=== PATIENT | male | born 1990 | race African-American/Black ===

== ENCOUNTER 2018-01-06 15:09 | Emergency (ER) | payer OTHER ==
[~2018-01-06] VITALS: Ht 165.1 cm; Wt 69.9 kg
[~2018-01-06 15:09] MED LIST: BACL-1 PO; CYCL10TA29 PO; HYDR-4309 PO; LOR5/325 PO
--- NOTE | 2018-01-06 15:17 | ER Report ---
History and Physical Time Seen By MD: 15:16 HPI/ROS CHIEF COMPLAINT: Toe pain HISTORY OF PRESENT ILLNESS: This is a 27-year-old male who presents to the emergency department for left toe pain right foot pain and mid back pain. Patient states about one week ago he developed some pain in his 2nd toe on his left foot, and then developed some pain to the dorsum of the right foot and then little bit of swelling to his right knee. No pain to the knee. Patient also states that he's had some mid thoracic back discomfort. Patient denies any injuries. [place] lot of traveling and walking around and since he's been back to [place] he's been walking quite a bit as well. Patient states he's been taking ibuprofen to help with some discomfort and inflammation. He said the pain is intermittent and seems to increase when he is ambulatory little so when he is sedentary. Patient denies fevers, aches, chills, nausea, vomiting, diarrhea, rashes, headaches, chest pain, shortness of breath or visual changes. REVIEW OF SYSTEMS: Constitutional: No fever, no chills. Eyes: No discharge. ENT: No sore throat. Cardiovascular: No chest pain, no palpitations. Respiratory: No cough, no shortness of breath. Gastrointestinal: No abdominal pain, no vomiting. Genitourinary: No hematuria. Musculoskeletal: As above. Skin: No rashes. Neurological: No headache. Allergies: Coded Allergies: No Known Drug Allergies (Unverified , 01/06/18) Home Meds Active Scripts Indomethacin (INDOMETHACIN) 25 Mg Capsule, 25 MG PO TID, #1 CAPSULE Prov:JOANN GALDAMEZP- 01/06/18 Indomethacin (INDOMETHACIN) 50 Mg Capsule, 50 MG PO TID, #9 CAPSULE 0 Refills 50mg TID for 2 days, then 25mg TID for 2 days Prov:JOANN GALDAMEZ [facility]- 01/06/18 Discontinued Scripts Baclofen (BACLOFEN) 10 Mg Tablet, 5 MG PO TID, #15 TAB Prov:REYNALDO CARDONA 12/01/15 Hydrocodone Bit/Acetaminophen (NORCO 5-325 TABLET) 1 Each Tablet, 1 EACH PO Q4- 6H Y for PAIN, #10 TAB Prov:REYNALDO CARDONA 12/01/15 Past Medical/Surgical History Patient has a past medical and surgical history of sleep apnea, right shoulder dislocation, no surgeries. Reviewed Nurses Notes: Yes Hx Smoking: No Smoking Status: Never Smoker Exposure to Second Hand Smoke?: No Hx Substance Use Disorder: No Constitutional Vital Sign - Last 24 Hours 01/06/18 01/06/18 15:15 16:30 Temp 97.9 Pulse 94 88 Resp 12 12 B/P (MAP) 128/79 135/73 (93) Pulse Ox 94 96 O2 Delivery Room Air Room Air Physical Exam General Appearance: The patient is alert, has no immediate need for airway protection and no signs of toxicity. Eyes: Pupils equal and round no pallor or injection. ENT, Mouth: Mucous membranes are moist. Respiratory: There are no retractions, lungs are clear to auscultation. Cardiovascular: Regular rate and rhythm, no murmurs, clicks or rubs. Gastrointestinal: Abdomen is soft and non tender, no masses, bowel sounds normal. Neurological: Alert and oriented X4. Moving all extremities. Following all commands. No focal neuro deficits. Skin: Warm and dry, no rashes. Musculoskeletal: Neck is supple non tender. No pain to the back with palpation , no step-offs or obvious deformities. Extremities fluctuant bursa type inflammation to the right medial knee, no pain, full range of motion. Dorsum of the right foot is mildly painful with palpation. Left 2nd toe is painful to touch, but no erythema, small amount of swelling noted. full range of motion. DIFFERENTIAL DIAGNOSIS: After history and physical exam differential diagnosis was considered for lyme disease, gout, autoimmune disease, stress fracture, tendonitis, bursitis and over use injury. Medical Decision Making ED Course/Re-evaluation ED Course The patient was admitted to room. Extremities were obtained. Differential diagnoses were considered. A left foot x-ray was obtained showing no acute osseous abnormalities. After discussion with patient decided to empirically treat the patient for gout with colchicine and indomethacin, even though the likelihood of gout is low. Also placed the patient in a postop shoe for comfort. I did tell the patient that I feel that this is all related to walking he's been doing and once he injured his left toe that he began to favor the right side. I did tell the patient that if he hasn't seen any improvement then he needs to follow up with [facility] for further evaluation. Patient was also instructed to return emergency Department for any other concerns or worsening symptoms. The patient had no other questions or concerns and was discharged home. Decision to Disposition Date: Jan 06, 2018 Decision to Disposition Time: 16:29 Depart Departure Latest Vital Signs Vital Signs Date Time Temp Pulse Resp B/P (MAP) Pulse Ox O2 Delivery O2 Flow Rate FiO2 01/06/18 16:30 88 12 135/73 (93) 96 Room Air 01/06/18 15:15 97.9 Impression: Primary Impression: Foot pain Additional Impression: Bursitis of left knee Condition: Improved Disposition: HOME OR SELF-CARE Referrals: [facility] New Scripts Indomethacin (INDOMETHACIN) 25 Mg Capsule 25 MG PO TID, #1 CAPSULE Prov: JOANN GALDAMEZ [facility]- 01/06/18 Indomethacin (INDOMETHACIN) 50 Mg Capsule 50 MG PO TID, #9 CAPSULE 0 Refills 50mg TID for 2 days, then 25mg TID for 2 days Prov: JOANN GALDAMEZ [facility] 01/06/18 Patient Instructions: Knee Bursitis (ED) Additional Instructions: Drink plenty of fluids. Get plenty of rest. If no improvement in the pain and swelling in the next week then follow up with ortho. Monitor for fevers, aches, rashes or chills, if you have these return to the ED for reevaluation. Take the one pill of Colchicine one hour after the first two. Take the Indomethacin as indicated. Do not take Ibuprofen or any other NSAIDS while taking Indomethacin or Colchicine. May return to the ED for any other concerns you may have. Problem Qualifiers Primary Impression: Foot pain Laterality: bilateral Qualified Codes: M79.671 - Pain in right foot; M79.672 - Pain in left foot Additional Impression: Bursitis of left knee Knee bursitis location: unspecified Qualified Codes: M70.52 - Other bursitis of knee, left knee JOANN GALDAMEZ [facility]- Jan 06, 2018 15:17
--- NOTE | 2018-01-06 16:14 | RADIOLOGY IMAGING REPORT ---
FACILITY: [facility] PATIENT NAME: Mati Thurman : 1990 MR: [id number] V: [id number] EXAM DATE: ORDERING PHYSICIAN: JOANN GALDAMEZ TECHNOLOGIST: Location: [facility] [place] Patient: Mati Thurman : 1990 Visit/Account:[id number] Date of Sevice: 01/06/2018 Technique: FOOT 3 VIEW LEFT HISTORY: Pain in second left toe Comparison studies: None FINDINGS: There is no acute fracture. The alignment of the left foot is maintained. Soft tissues ar e unremarkable. IMPRESSION: 1. No acute osseous process. Report Dictated By: Diego Bentley DO at 01/06/2018 4:07 PM Report E-Signed By: Diego Bentley DO at 01/06/2018 4:08 PM WSN:[id number]
[2018-01-06] MEDS ORDERED: COLCHICINE 0.6 MG TAB PO ONE ×2 (16:15)
[2018-01-06] MEDS ORDERED: INDO50CA92 PO (16:21)
[2018-01-06 16:30] VITALS: BP 135/73
[2018-01-06] MEDS ORDERED: INDO-1 PO (16:39)
== END 2018-01-06 16:30 | disposition home or self-care (01) ==
LOC: ER 15:17
DX: M70.52 Other bursitis of knee, left knee (principal); M79.671 Pain in right foot; M79.672 Pain in left foot
CPT/HCPCS: 99283